=== PATIENT | female | born 1940 | race Caucasian/White ===

== ENCOUNTER → 2016-06-27 | Day surgery (SDC) | payer MEDICARE, BC ==
[~2016-06-27] MED LIST: ACETAMINOPHEN PR; ADVAIR 2501 DISK W/1 IH; ADVAIR 2501 DISK W/D; ALBUTEROL MININEB NEB; ALBUTEROL0.63 MG/3 IH; ALBUTEROL17 GM INH; AMARYL; AMARYL PO; AMARYL2 MG PO; ASPIRIN PO; ATENOLOL PO; ATENOLOL50 MG PO; AVANDAMET; BACTRIM 400-801 TA1 PO; BACTRIM DS TABL1 TA1 PO; BENTYL20 MG PO; BUSPAR PO; BUSPAR15 MG PO; CELEBREX PO; CENESTIN0.45 MG PO; CEPHALEXIN500 M1 PO; CIPRO PO; CITRATE OF MAG300 ML PO; COLACE PO; COMBIVENT INH14.7 GM; DARVOCET-N 1001 TAB; DICLOFENAC; DICLOFENAC SODI50 MG PO; DOC-Q-LACE100 MG PO; ENABLEX7.5 MG PO; ESTROGEL93 GM VG; FENOFIBRATE145 MG PO; FENOFIBRATE160 MG PO; FENOFIBRATE48 MG PO; FLEXERIL PO; FLEXERIL10 MG PO; FLONASE 0.05% N16 G1; FLORINEF0.1 M1 PO; GLUCOPHAGE XR500 MG PO; GLUCOPHAGE500 M1 PO; HUMULIN N VIAL SUBQ; HUMULIN N300 U/3 ML SUBQ; HYDROCODON-ACE1 EAC4 PO; KEFLEX500 M1; KEFLEX500 M1 PO; LACTULOSE10 G/15 ML PO; LASIX PO; LASIX20 MG PO; LEVAQUIN750 MG PO; LEVEMIR SUBQ; LEVOTHYROXINE75 MCG PO; LINZESS290 MCG PO; LORTAB 10/500 T1 TAB PO; LORTAB 5/500 TA1 TA1 PO; MEDROL PO; METFORMIN HCL500 M1 PO; METFORMIN PO; METRONIDAZOLE PO; MIRALAX17 G2 PO; NABUMETONE PO; NASACORT AQ16.5 GM; NOVOLOG100 U/M1; NOVOLOG100 U/M2 SUBQ; NOVOLOG100 U/ML SUBQ; OPANA10 MG PO; OXYCONTIN20 MG PO; OXYGEN; OXYMORPHONE PO; PANTOPRAZOLE SO40 MG PO; PATIENT'S PHARMACY; PERCOCET 10-651 EACH PO; PERCOCET 5/321 UDTAB PO; PERCOCET10 PO; PHENERGAN PO; PRAVACHOL PO; PRAVASTATIN SOD40 MG PO; PREMARIN PO; PRENATAL1 TA1 PO; PROAIR HFA8.5 GM IH; PROTONIX PO; PROTONIX40 MG/BLIS PO; PYRIDIUM PO; QNASL8.7 GM NS; RISPERIDONE; SINGULAIR; SPIRIVA18 MCG INH; SYMBICORT 160/4.6 G1 INH; SYNTHROID; TENORMIN50 MG PO; TOPAMAX25 MG PO; TRICOR; TRICOR PO; ULTRAM PO; VICODIN 5/500 T1 TAB PO; VITAMIN D50000 UNIT PO; VYTORIN 10/10 T1 TAB PO; ZOLOFT PO; ZOLOFT100 MG PO; ZOLOFT50 MG PO; ZONEGRAN100 M1 PO; ZYRTEC; [UNRECOGNIZED DRUG - OTHER] PO; [UNRECOGNIZED DRUG - OTHER] PO; [UNRECOGNIZED DRUG - OTHER] SUBQ
--- NOTE | ~2016-06-27 | OR ---
Unit #: [id number] #: [id number] Patient: CONCEPCION TOBIAS [id number] [address] [address] [id number] O MR#: [id number] NAME: CONCEPCION TOBIAS ROOM: Date of Procedure: 06/27/2016 Admission Date: 06/27/2016 Surgeon: Shree Pink M.D. : 1940 Attending Physician: Shree Pink M.D. Primary Care Physician: Daryn Petersen M.D. OPERATIVE REPORT PREOPERATIVE DIAGNOSES Neck pain, cervical radiculopathy, degenerative cervical disk disease and post cervical fusion. POSTOPERATIVE DIAGNOSES Neck pain, cervical radiculopathy, degenerative cervical disk disease and post cervical fusion. PROCEDURE PERFORMED Cervical epidural steroid injection with intravenous sedation under fluoroscopic guidance for needle localization. INDICATIONS FOR PROCEDURE The patient is a 75-year-old female with return of neck and upper extremity pain. She is status post C4 through C7 fusion. She has adjacent level disease worse below than above the fusion. She was treated with p.r.n. epidural steroid injections at this level. Last was done 4 months ago. She did quite well with that. Based on history, pathology, symptomatology, and options, we are going to proceed with a second injection today. DESCRIPTION OF PROCEDURE The patient was placed in a seated position. Standard monitors were applied. Then, 1 mg of Versed was given for sedation and anxiolysis, which were adequate. Vital signs remained stable. Sterile prep and drape of the cervical area was performed. The skin at the C7 level was localized with 1% lidocaine. An 18-gauge Localmindtead needle was then advanced via hanging drop technique and fluoroscopic guidance in toward the epidural space. After confirming proper positioning with fluoroscopy and radiographic contrast, 80 mg of Depo-Medrol and 2 mL of 0.25% bupivacaine were deposited. The patient tolerated the procedure otherwise well and was discharged to the recovery room in stable condition. Dictated by... Shree Pink M.D. LHP/modl TD: 06/27/2016 12:51 JOB #: [id number] Unit #: [id number] #: [id number] Patient: CONCEPCION TOBIAS OPERATIVE REPORT Page 1 of 1 X Shree Pink MD X PROCEDURE OPERATIVE NOTE
== END | disposition home or self-care (01) ==
LOC: CCSC 07:46
DX: M50.123 Cervical disc disorder at C6-C7 level with radiculopathy (principal); Z98.1 Arthrodesis status
CPT/HCPCS: J1040; J2250

== ENCOUNTER → 2016-07-04 | Day surgery (SDC) | payer MEDICARE, BC ==
--- NOTE | ~2016-07-04 | OR ---
Unit #: [id number] #: [id number] Patient: CONCEPCION TOBIAS [id number] [address] [address] [id number] O MR#: [id number] NAME: CONCEPCION TOBIAS ROOM: Date of Procedure: 07/04/2016 Admission Date: 07/04/2016 Surgeon: Shree Pink M.D. : 1940 Attending Physician: Shree Pink M.D. Primary Care Physician: Daryn Petersen M.D. OPERATIVE REPORT PREOPERATIVE DIAGNOSES 1. Back pain. 2. Radiculopathy. 3. Degenerative lumbar disk disease. 4. Spondylolisthesis. POSTOPERATIVE DIAGNOSES 1. Back pain. 2. Radiculopathy. 3. Degenerative lumbar disk disease. 4. Spondylolisthesis. PROCEDURE PERFORMED Lumbar epidural steroid injection with intravenous sedation and fluoroscopic guidance for needle localization. INDICATIONS FOR PROCEDURE A 75-year-old female with return of back and lower extremity pain. She has multilevel multifactorial degenerative cervical, thoracic, and lumbar disk disease. She is a nonsurgical candidate. She was treated medically with p.r.n. single epidural steroid injections every 3 to 4 months. She had a repeat cervical injection in last month, which helped to settle her pain back towards its baseline. Her back and leg pain has flared, so plan is to repeat a lumbar epidural steroid injection today. DESCRIPTION OF PROCEDURE The patient was placed in a seated position. Standard monitors were applied. 1 mg of Versed was given for sedation and anxiolysis, which were adequate. Vital signs remained stable. Sterile prep and drape then of the lumbar area was performed. The skin then at the L5 level was localized with 1% lidocaine. An 18-gauge Sirnaomicstead needle was then advanced via loss of resistance technique and fluoroscopic guidance in toward the epidural space. After confirming proper positioning with fluoroscopy and radiographic contrast, 80 mg of Depo-Medrol and 4 mL of 0.125% bupivacaine were deposited. The patient tolerated the procedure otherwise well and was discharged to the recovery room in stable condition. Dictated by... Shree Pink M.D. Unit #: [id number] #: [id number] Patient: CONCEPCION TOBIAS LHP/modl TD: 07/04/2016 23:58 JOB #: [id number] OPERATIVE REPORT Page 1 of 1 X Shree Pink MD X PROCEDURE OPERATIVE NOTE
== END | disposition home or self-care (01) ==
LOC: CCSC 07:42
DX: M51.16 Intervertebral disc disorders with radiculopathy, lumbar region (principal); M43.16 Spondylolisthesis, lumbar region; J44.9 Chronic obstructive pulmonary disease, unspecified; Z98.1 Arthrodesis status; M19.90 Unspecified osteoarthritis, unspecified site
CPT/HCPCS: J1040; J2250

== ENCOUNTER 2016-09-02 12:18 | Emergency (ER) | payer MEDICARE, BC ==
[~2016-09-02] VITALS: Ht 157.5 cm; Wt 63.6 kg
--- NOTE | ~2016-09-02 | CR58 ---
[facility] A Service of [facility] RADIOLOGY TEXT RESULTS PATIENT: CONCEPCION TOBIAS LOCATION: SED : 42 UNIT #: [id number] AGE: [address]: Hilario Dietrich MD SEX: F ORDER DR: [id number] [address] [address] [id number] E MR#: [id number] Acc #: [id number] NAME: CONCEPCION TOBIAS : 1940 SEX: F STUDY DATE/TIME: 09/02/2016 13:43 UNIT: SED ROOM: STUDY DESCRIPTION: CR Cervical Spine 2 or 3 Views Attending Physician: Hilario Dietrich M.D. Ordering Physician: Hilario Dietrich M.D. Primary Care Physician: Daryn Petersen M.D. MEDICAL IMAGING REPORT This report is preliminary unless electronic signature is present. EXAM Cervical spine, 4 views. COMPARISON STUDIES March 31, 2015 INDICATION A 75 old female with left-sided neck pain radiating into the shoulders since falling 5 days ago. FINDINGS Interbody fusion is again noted at C5-C7. There is stable degenerative grade 1 anterolisthesis of C7 on T1 of approximately 3 mm. There is likely due to degenerative facet disease at this level. There is disc height loss at C3-C4, stable likely with mild disc height loss at C4-C5, also stable. No evidence of acute fracture. Shoulder arthroplasty is noted, only seen on the lateral view. There is multilevel degenerative facet disease throughout the cervical spine bilaterally. IMPRESSION 1. No acute fracture or dislocation of the cervical spine. As compared to March 28, 2015, there are grossly stable diffuse degenerative changes with stable evidence of interbody fusion at C5-C7. 2. Stable grade 1 degenerative anterolisthesis of C7 on T1 likely due to degenerative facet disease and degenerative disc disease. Dictated by... Jack Early M.D. THIS IS AN ELECTRONICALLY VERIFIED REPORT Jack Early M.D. at 09/09/2016 8:27 PM [facility] A Service of [facility] RADIOLOGY TEXT RESULTS PATIENT: CONCEPCION TOBIAS LOCATION: SED : 42 UNIT #: [id number] AGE: [address]: Hilario Dietrich MD SEX: F ORDER DR: Regina TD: 09/02/2016 17:34 JOB #: [id number] MEDICAL IMAGING REPORT Page 1 of 1
--- NOTE | ~2016-09-02 | CR229 ---
[facility]. [facility] A Service of [facility] & [facility] RADIOLOGY TEXT RESULTS PATIENT: CONCEPCION TOBIAS LOCATION: SED : 42 UNIT #: [id number] AGE: [address]: Hilario Dietrich MD SEX: F ORDER DR: [id number] [address] [address] [id number] E MR#: [id number] Acc #: [id number] NAME: CONCEPCION TOBIAS : 1940 SEX: F STUDY DATE/TIME: 09/02/2016 12:59 UNIT: SED ROOM: STUDY DESCRIPTION: CR Shoulder Min 2 View Lt Attending Physician: Hilario Dietrich M.D. Ordering Physician: Hilario Dietrich M.D. Primary Care Physician: Daryn Petersen M.D. MEDICAL IMAGING REPORT This report is preliminary unless electronic signature is present. EXAM Left shoulder INDICATIONS Left shoulder pain status post fall. 4-day duration. FINDINGS Three views of the left shoulder are compared to 12/30/2015. Patient has a left shoulder reverse arthroplasty. There has been prior surgical removal or macro osteolysis of the distal clavicle. There is no acute fracture dislocation. IMPRESSION No acute findings. Prior reverse of shoulder arthroplasty Dictated by... Antonio Barrett M.D. THIS IS AN ELECTRONICALLY VERIFIED REPORT Antonio Barrett M.D. at 09/03/2016 5:13 PM COMPA/mitchell TD: 09/02/2016 17:32 JOB #: [id number] MEDICAL IMAGING REPORT Page 1 of 1
== END 2016-09-02 15:25 | disposition home or self-care (01) ==
LOC: SED 12:18
DX: S13.4XXA Sprain of ligaments of cervical spine, initial encounter (principal); S43.402A Unspecified sprain of left shoulder joint, initial encounter; K21.9 Gastro-esophageal reflux disease without esophagitis; E03.9 Hypothyroidism, unspecified; Z90.710 Acquired absence of both cervix and uterus; Z98.890 Other specified postprocedural states; Y92.009 Unspecified place in unspecified non-institutional (private) residence as the place of occurrence of the external cause; Z88.0 Allergy status to penicillin; Z91.040 Latex allergy status; Z88.5 Allergy status to narcotic agent; Z88.8 Allergy status to other drugs, medicaments and biological substances; Z79.899 Other long term (current) drug therapy; W01.0XXA Fall on same level from slipping, tripping and stumbling without subsequent striking against object, initial encounter
CPT/HCPCS: 72040; 73030; 99283

== ENCOUNTER → 2016-10-12 | Day surgery (SDC) | payer MEDICARE, BC ==
--- NOTE | ~2016-10-12 | OR ---
Unit #: [id number] #: [id number] Patient: CONCEPCION TOBIAS [id number] [address] [address] [id number] O MR#: [id number] NAME: CONCEPCION TOBIAS ROOM: Date of Procedure: 10/12/2016 Admission Date: 10/12/2016 Surgeon: Shree Pink M.D. : 1940 Attending Physician: Shree Pink M.D. Primary Care Physician: Daryn Petersen M.D. OPERATIVE REPORT PREOPERATIVE DIAGNOSES 1. Low back pain, radiculopathy, degenerative disk disease, spondylolisthesis. 2. Neck pain, cervical radiculopathy, degenerative cervical disk disease. POSTOPERATIVE DIAGNOSES 1. Low back pain, radiculopathy, degenerative disk disease, spondylolisthesis. 2. Neck pain, cervical radiculopathy, degenerative cervical disk disease. PROCEDURES PERFORMED 1. Lumbar epidural steroid injection with fluoroscopic guidance. 2. Cervical epidural steroid injection with fluoroscopic guidance. DESCRIPTION OF PROCEDURE The patient was placed in a seated position. Standard monitors were applied. Sterile prep and drape of the lumbar area was performed. The skin then at the L4-L5 level was localized with 1% lidocaine. An 18-gauge Hustead needle was then advanced via loss of resistance technique and fluoroscopic guidance in toward the epidural space. The patient did not complain of pain or paresthesia during needle advancement. After confirming proper positioning with fluoroscopy and radiographic contrast, a dose of 40 mg of Depo-Medrol and 4 mL of 0.125% bupivacaine were deposited. The patient tolerated this part of procedure well. PROCEDURE #2: Cervical epidural steroid injection with fluoroscopic guidance. A separate kit was used to sterilely prep and drape the patient's cervical spine. The skin then at the C7-T1 level was localized with 1% lidocaine. An 18-gauge Hustead needle was then advanced via hanging drop technique and fluoroscopic guidance in toward the epidural space. The patient did not complain of pain or paresthesia during needle advancement. After confirming proper positioning with fluoroscopy and radiographic contrast, 40 mg of Depo-Medrol and 2 mL of preservative-free normal saline were deposited. The patient tolerated the procedure otherwise well and was discharged to the recovery room in stable condition. Dictated by... Nasrin Garcia/aurelia Unit #: [id number] #: [id number] Patient: CONCEPCION TOBIAS TD: 10/12/2016 11:51 JOB #: [id number] CC: [facility] OPERATIVE REPORT Page 1 of 1 X Shree Pink MD X PROCEDURE OPERATIVE NOTE
== END | disposition home or self-care (01) ==
LOC: CCSC 08:23
DX: M51.16 Intervertebral disc disorders with radiculopathy, lumbar region (principal); M50.10 Cervical disc disorder with radiculopathy, unspecified cervical region; M43.16 Spondylolisthesis, lumbar region; E11.9 Type 2 diabetes mellitus without complications; J44.9 Chronic obstructive pulmonary disease, unspecified; Z88.0 Allergy status to penicillin; Z91.040 Latex allergy status; Z79.51 Long term (current) use of inhaled steroids; Z79.84 Long term (current) use of oral hypoglycemic drugs; Z79.891 Long term (current) use of opiate analgesic; Z79.899 Other long term (current) drug therapy; Z98.1 Arthrodesis status
CPT/HCPCS: J1030; J1040; J2250